=== PATIENT | female | born 1990 | race Caucasian/White ===

== ENCOUNTER 2017-06-28 12:07 | Inpatient (IN) | payer MEDICAID ==
[2017-06-28] MEDS ORDERED: Sodium Chloride 0.9% 10 ML Syringe FLUSH PRN (13:10)
--- NOTE | 2017-06-28 13:18 | PCM.LDHP ---
L&D History of Present Illness - General Date of Service: 06/28/17 Admit Problem/Dx: Patient Status Order with Admit Dx/Problem 06/28/17 12:16 Admission Status [Patient Status] [ADT] Routine Admission Diagnosis/Problem Admission Diagnosis/Problem -related examination - History of Present Illness Introduction:: Labor began 1000 today. Normal to date. EDC: 06/30/18, 39+wks. Timing/Duration: Reports: minutes: Location, : Reports: Abdomen Severity: Moderate - Related Data Allergies/Adverse Reactions: Allergies Allergy/AdvReac Type Severity Reaction Status Date / Time No Known Allergies Allergy Verified 06/21/17 18:01 Home Medications: Home Meds [id number]/Iron Fumarate/FA/DSS [ 19 Tablet] 1 tab PO DAILY 06/21/17 [ History] Past Medical History - Past Health History Medical/Surgical History: Denies Medical/Surgical History ( with NVD of twins 2016.) Psychiatric History: Reports: Anxiety, Depression Other Psychiatric History: cutting and/or burning self - Infectious Disease History Infectious Disease History: Reports: Chicken Pox - Past Surgical History HEENT Surgical History: Reports: Oral Surgery Social & Family History - Family History OBGYN: Reports: None Musculoskeletal: Reports: None Neurological: Reports: None Psychiatric: Reports: None Endocrine/Metabolic: Reports: None Hematologic: Reports: None Dermatologic: Reports: None Oncologic: Reports: None - Tobacco Use Smoking Status *Q: Current Every Day Smoker Years of Tobacco use: 11 Packs/Tins Daily: 0.5 Used Tobacco, but Quit: No Second Hand Smoke Exposure: Yes - Caffeine Use Caffeine Use: Reports: None - Recreational Drug Use Recreational Drug Use: No H&P Review of Systems - Review of Systems: Review Of Systems: See Below General: Reports: No Symptoms HEENT: Reports: No Symptoms Pulmonary: Denies: Shortness of Breath Cardiovascular: Denies: Chest Pain Gastrointestinal: Denies: Abdominal Pain Genitourinary: Denies: Hematuria Musculoskeletal: Denies: Joint Pain Skin: Denies: Rash Psychiatric: Denies: Agitation Neurological: Reports: No Symptoms Hematologic/Lymphatic: Reports: No Symptoms Immunologic: Reports: No Symptoms L&D Exam - Exam Exam: See Below (Normal) - OB Specific Contraction Intensity: Mild to Moderate Movement: Active Heart Tones: Present Heart Tones per Min: 128 Heart Rate (FHR) Variability: Moderate (6-25 bmp) Presentation: Vertex - He Score He Score Cervix Position: Midposition He Score Consistency: Soft He Score Effacement: 51-70% He Score Dilation: > 5 cm He Score Infant's Station: -1 ,0 He Score Total: 10 - Exam General: Alert, Oriented HEENT: Pupils Equal Neck: Supple Lungs: Clear to Auscultation Cardiovascular: Regular Rate, Regular Rhythm GI/Abdominal Exam: Soft, Non-Tender Genitourinary: Normal external exam Extremities: Normal Inspection. No: Pedal Edema Skin: Warm, Dry Neurological: Normal Speech Psychiatric: Alert, Normal Affect, Normal Mood - Problem List (1) Normal in multigravida SNOMED Code(s): 11979078 ICD Code: Z34.80 - ENCOUNTER FOR SUPRVSN OF NORMAL , UNSP TRIMESTER Status: Acute Current Visit: Yes Problem List Initiated/Reviewed/Updated: Yes Orders Last 24hrs: Active Orders 24 hr Category Date Time Status Admission Status [Patient Status] [ADT] Routine ADT 06/28/17 12:16 Active Communication Order [RC] ASDIRECTED Care 06/28/17 13:10 Ordered Heart Tones [RC] PER UNIT ROUTINE Care 06/28/17 13:10 Ordered Notify Provider Vital Signs [RC] PRN Care 06/28/17 13:10 Ordered Notify Provider [RC] PRN Care 06/28/17 13:10 Ordered Vital Signs [RC] PER UNIT ROUTINE Care 06/28/17 13:10 Ordered CBC WITH AUTO DIFF [HEME] Routine Lab 06/28/17 13:10 Ordered Sodium Chloride 0.9% [Saline Flush] Med 06/28/17 13:10 Ordered 10 ml FLUSH ASDIRECTED PRN Saline Lock Insert [OM.PC] Routine Oth 06/28/17 13:10 Ordered Resuscitation Status Routine Resus Stat 06/28/17 13:10 Ordered Assessment/Plan Comment:: Active labor. Normal exam. Epidural anesthetic PRN.
[2017-06-28] MEDS: Lactated Ringers 1,000 ML IV SCH ×2 (13:40→16:19)
[2017-06-28] MEDS ORDERED: ePHEDrine 50 MG/ML SDV ONE (13:58)
[2017-06-28] MEDS ORDERED: fentaNYL 300 MCG in Ropivacaine 200 ML IV ONE (14:41)
[2017-06-28] MEDS ORDERED: fentaNYL 100 MCG/2 ML SDV ONE ×3 (14:41)
[2017-06-28] MEDS ORDERED: Bupivacaine 0.25% 30 ML SDV EPIDUR ONE ×2 (14:41→18:14)
[2017-06-28] MEDS ORDERED: Nalbuphine 10 MG/1 ML Vial IVPUSH PRN (14:46)
[2017-06-28] MEDS ORDERED: Naloxone 0.4 MG in Sodium Chloride 0.9% 100 ML IV PRN ×2 (14:46→15:20)
[2017-06-28] MEDS ORDERED: Promethazine 25 MG/ML SDV IV PRN ×3 (14:46→15:20)
[2017-06-28] MEDS ORDERED: Naloxone 0.4 MG/ML SDV IVPUSH PRN ×3 (14:46→15:20)
[2017-06-28] MEDS ORDERED: hydrOXYzine HCl 50 MG/ML SDV IM PRN ×3 (14:46→15:31)
[2017-06-28] MEDS ORDERED: diphenhydrAMINE 50 MG/ML SDV IVPUSH PRN ×2 (14:50→15:21)
[2017-06-28] MEDS ORDERED: Ondansetron 4 MG/2 ML SDV IVPUSH PRN ×2 (14:51→15:23)
--- NOTE | 2017-06-28 14:53 | PCM.PRNOTE ---
- Free Text/Narrative Note: Called for labor analgesia for induction of labor. Patient rates pain score 7 of 10 on a 10 scale prior to initiation of labor analgesia. Discussed analgesia options, benefits to include risks of CSE. Questions answered and agrees to proceed. Sitting up at edge of bed, prepped, draped and L3-4 localized with 1% Lidocaine. A 17 gauge toughy was advanced with SAVANNAH technique until SAVANNAH was appreciated at 6cm. A 25 gauge spinal needle was advanced via epidural needle (CSE) with free flow CSF, negative heme and negative paresthesia. 20 mcg intrathecal fentanyl was administered at 1410 (Lot number [id number] exp 04/2018). The needle was removed with stylette in place. The epidural catheter was passed through the needle and left at 9 cm. A test dose of 1.5% lidocaine with 1.200K epi was given without any change in patient condition. 80 mcg of fentanyl was also administered epidurally. The catheter was secured in place. An infusion of 0.2 % ropivicaine with 600 mcg fentanyl (3 mcg/ml of fentanyl) was hung and infusing at 8 ml/hr. The PCEA was set at bolus of 5 ml every 12 minutes. The patient's hemodynamics were stable throughout and baby looks good on the monitor. Discussed with patient progression of labor and not always will have 100% pain relief during delivery. We discussed optimizing this by sitting with HOB when starts to feel pelvic pressure and to use bolus button to use gravity to cover low perineum. Verbalizes understanding. Time at bedside was 40 minutes.
[2017-06-28] MEDS ORDERED: ePHEDrine 50 MG/ML SDV IVPUSH PRN (15:20)
[2017-06-28] MEDS ORDERED: Oxytocin/Normal Saline 10 UNIT/1,000 ML BAG IV SCH (16:15)
--- NOTE | 2017-06-28 18:05 | PCM.SN ---
- Free Text/Narrative Note: Called in for pump alarming "air in line". Tubing primed again and connected. Also complains of pain at this time. A pump administered bolus of 10 ml twice. Still uncomfortable. Administered 10 mcg fentanyl and 10 ml 0.25% bupivicaine. Still a bit uncomfortable but ready to push now. While sitting up ready to push another 5 ml of 0.25% bupi given.
--- NOTE | 2017-06-28 18:10 | PCM.PNLD ---
Labor Progress Note - VS & Meds Vital Signs: Last Vital Signs Temp 97.8 F 06/28/17 12:15 Pulse 77 06/28/17 16:04 Resp 16 06/28/17 12:15 BP 105/60 06/28/17 16:04 Pulse Ox 99 06/28/17 12:15 Active Medications: Current Medications Diphenhydramine HCl (Benadryl) 25 mg IVPUSH Q3H PRN PRN Reason: PRURITUS Ephedrine Sulfate (Ephedrine Sulfate) 5 mg IVPUSH ASDIRECTED PRN PRN Reason: HYPOTENSION Hydroxyzine HCl (Vistaril) 25 - 50 mg IM Q6H PRN PRN Reason: PRURITIS Hydroxyzine HCl (Vistaril) 25 - 50 mg IM Q4H PRN PRN Reason: NAUSEA AND VOMITING Naloxone HCl 0.4 mg/ Sodium (Chloride) 101 mls @ 25 mls/hr IV ASDIRECTED PRN PRN Reason: PER ORDER OF ANESTHESIA Oxytocin/Sodium Chloride (Pitocin In Ns 10 Units/1,000 Ml) 10 unit in 1,000 mls @ 12 mls/hr IV TITRATE CALI; 2 MUNITS/MIN PRN Reason: Protocol Last Titration: 06/28/17 17:50 Dose: 1 munits/min, 6 mls/hr Lactated Ringer's (Ringers, Lactated) 1,000 mls @ 125 mls/hr IV ASDIRECTED CALI Last Admin: 06/28/17 16:19 Dose: 125 mls/hr Naloxone HCl (Narcan) 0.1 mg IVPUSH ASDIRECTED PRN PRN Reason: RESPIRATORY STATUS Ondansetron HCl (Zofran) 4 mg IVPUSH Q6H PRN PRN Reason: NAUSEA AND VOMITING Promethazine HCl (Phenergan) 6.25 - 12.5 mg IV Q4H PRN PRN Reason: NAUSEA AND VOMITING Sodium Chloride (Saline Flush) 10 ml FLUSH ASDIRECTED PRN PRN Reason: Keep Vein Open Discontinued Medications Ephedrine Sulfate (Ephedrine Sulfate) Confirm Administered Dose 50 mg .ROUTE .STK-MED ONE Stop: 06/28/17 13:59 - Uterine Contractions Uterine Monitoring Mode: External [place] Contraction Frequency (min): 6 Contraction Duration (sec): 50-70 Contraction Intensity: Mild Uterine Resting Tone: Soft - Monitoring Monitor Mode: External Ultrasound Heart Rate (FHR) Variability: Moderate (6-25 bmp) Decelerations: None - Vaginal Exam Dilation (cm): 8-9 Effacement (Percent): 90 Station: 0 Cervical Position: Midposition - Labor Progress (Free Text) Labor Progress: Pt doing well. Epidural anesthetic wearing off, getting re-bolused. FHTs good. Amniotomy + Lightly stained amniotic fluid. Cont. augmentation. Anticipate NVD.
--- NOTE | 2017-06-28 18:53 | PCM.DEL ---
L & D Note - General Info Date of Service: 06/28/17 - Delivery Note Labor: Augmented by ARM, Augmented by Oxytocin Delivery Outcome: Livebirth Infant Delivery Method: Spontaneous Vaginal Delivery-Single Delivery Mode: Spontaneous Presentation: Right Occiput Anterior (RAMSEY) Nuchal Cord: None Prep: Povidone-Iodine (Betadine Anesthesia Type: Epidural Amniotic Fluid Description: Meconium Stained Episiotomy Type: None Laceration: Periurethral Placenta: Spontaneous Cord: 3 Vessels Estimated Blood Loss: 150 Resuscitation Needed: No [place]: Suctioned, Bulb Syringe, Cathether, Stimulated Score 1 min: 9 Score 5 min: 9 Delivery Comments (Free Text/Narrative):: Steady progress in labor with IV pitocin augmentation. Pt. reached complete dilation. NVD after pushing with 3 contractions. MICHAEL position, nares and mouth suctioned after delivery of head. Baby suctioned, placed on Mom's abdomen, then to [place] warmer. Spontaneous [place] placenta with 3 vessel cord. Good uterine contraction, pitocin IV opened to 500ml/hr. BW 7#10oz. Baby's name Jesus Varghese. - Patient Data Vitals - Most Recent: Last Vital Signs Temp 97.8 F 06/28/17 12:15 Pulse 77 06/28/17 16:04 Resp 16 06/28/17 12:15 BP 105/60 06/28/17 16:04 Pulse Ox 99 06/28/17 12:15 Weight - Most Recent: 190 lb Lab Results Last 24 Hours: Laboratory Results - last 24 hr 06/28/17 Range/Units 13:25 WBC 15.2 H (4.5-12.0) X10-3/uL RBC 4.63 (3.23-5.20) x10(6)uL Hgb 12.6 (11.5-15.5) g/dL Hct 37.7 (30.0-51.3) % MCV 81.5 (80-96) fL MCH 27.2 L (27.7-33.6) pg MCHC 33.3 (32.2-35.4) g/dL RDW 14.1 (11.5-15.5) % Plt Count 250 (125-369) X10(3)uL MPV 8.2 (7.4-10.4) fL Neut % (Auto) 75.1 (46-82) % Lymph % (Auto) 15.5 (13-37) % [place] % (Auto) 8.3 (4-12) % Eos % (Auto) 1 (1.0-5.0) % Baso % (Auto) 0 (0-2) % Neut # (Auto) 11.3 H (1.6-8.3) # Lymph # (Auto) 2.4 (0.6-5.0) # [place] # (Auto) 1.3 (0.0-1.3) # Eos # (Auto) 0.1 (0.0-0.8) # Baso # (Auto) 0.1 (0.0-0.2) # Med Orders - Current: Current Medications Diphenhydramine HCl (Benadryl) 25 mg IVPUSH Q3H PRN PRN Reason: PRURITUS Ephedrine Sulfate (Ephedrine Sulfate) 5 mg IVPUSH ASDIRECTED PRN PRN Reason: HYPOTENSION Hydroxyzine HCl (Vistaril) 25 - 50 mg IM Q6H PRN PRN Reason: PRURITIS Hydroxyzine HCl (Vistaril) 25 - 50 mg IM Q4H PRN PRN Reason: NAUSEA AND VOMITING Naloxone HCl 0.4 mg/ Sodium (Chloride) 101 mls @ 25 mls/hr IV ASDIRECTED PRN PRN Reason: PER ORDER OF ANESTHESIA Oxytocin/Sodium Chloride (Pitocin In Ns 10 Units/1,000 Ml) 10 unit in 1,000 mls @ 12 mls/hr IV TITRATE CLAI; 2 MUNITS/MIN PRN Reason: Protocol Last Titration: 06/28/17 17:50 Dose: 1 munits/min, 6 mls/hr Lactated Ringer's (Ringers, Lactated) 1,000 mls @ 125 mls/hr IV ASDIRECTED CALI Last Admin: 06/28/17 16:19 Dose: 125 mls/hr Naloxone HCl (Narcan) 0.1 mg IVPUSH ASDIRECTED PRN PRN Reason: RESPIRATORY STATUS Ondansetron HCl (Zofran) 4 mg IVPUSH Q6H PRN PRN Reason: NAUSEA AND VOMITING Promethazine HCl (Phenergan) 6.25 - 12.5 mg IV Q4H PRN PRN Reason: NAUSEA AND VOMITING Sodium Chloride (Saline Flush) 10 ml FLUSH ASDIRECTED PRN PRN Reason: Keep Vein Open Discontinued Medications Bupivacaine HCl (Marcaine 0.25%) 30 ml EPIDUR ONETIME ONE Stop: 06/28/17 18:15 Ephedrine Sulfate (Ephedrine Sulfate) Confirm Administered Dose 50 mg .ROUTE .STK-MED ONE Stop: 06/28/17 13:59 - Problem List & Annotations (1) Normal in multigravida SNOMED Code(s): 80081794 Code(s): Z34.80 - ENCOUNTER FOR SUPRVSN OF NORMAL , UNSP TRIMESTER Status: Acute Current Visit: Yes - Problem List Review Problem List Initiated/Reviewed/Updated: Yes - My Orders Last 24 Hours: My Active Orders 06/28/17 12:16 Admission Status [Patient Status] [ADT] Routine 06/28/17 13:10 Communication Order [RC] ASDIRECTED Heart Tones [RC] PER UNIT ROUTINE Notify Provider Vital Signs [RC] PRN Notify Provider [RC] PRN Vital Signs [RC] PER UNIT ROUTINE Sodium Chloride 0.9% [Saline Flush] 10 ml FLUSH ASDIRECTED PRN Saline Lock Insert [OM.PC] Routine Resuscitation Status Routine 06/28/17 16:04 Communication Order [RC] ASDIRECTED Communication Order [RC] ASDIRECTED Communication Order [RC] ASDIRECTED Communication Order [RC] ASDIRECTED Notify Provider [RC] PRN Notify Provider [RC] STAT Vital Signs [RC] PER UNIT ROUTINE 06/28/17 16:15 Oxytocin/Normal Saline [Pitocin in NS 10 UNITS/1,000 ML] 10 unit in 1,000 ml IV TITRATE 06/28/17 17:15 Lactated Ringers [Ringers, Lactated] 1,000 ml IV ASDIRECTED - Assessment Assessment:: Delivered. - Plan Plan:: Active labor. Normal exam. Epidural anesthetic PRN.
--- NOTE | 2017-06-29 08:54 | PCM.DCSUM1 ---
Discharge Summary - Hospital Course Free Text/Narrative:: Healthy pt. with NVD at term. course normal. Discharge to home with baby. F/U appt. baby 2 wks, mom 6 wks. - Discharge Data Discharge Date: 06/29/17 Discharge Disposition: Home, Self-Care 01 Condition: Good - Discharge Diagnosis/Problem(s) (1) Normal in multigravida SNOMED Code(s): 25422582 ICD Code: Z34.80 - ENCOUNTER FOR SUPRVSN OF NORMAL , UNSP TRIMESTER Status: Acute Priority: High Current Visit: Yes - Patient Summary/Data Operative Procedure(s) Performed: NVD - Patient Instructions Diet: Usual Diet as Tolerated Activity: As Tolerated Driving: May Drive Today - Discharge Plan Home Medications: Home Meds [id number]/Iron Fumarate/FA/DSS [ 19 Tablet] 1 tab PO DAILY 06/21/17 [ History] Patient Handouts: and Inducing , Contraception Choices, Hormonal Contraception Information, Mastitis, [id number], Vaginal Delivery, and Mastitis, Depression and Baby Blues, Home Care Instructions for Mom, Vaginal Delivery, Care After, Breast Engorgement, Breast Pumping Tips, [id number], Challenges and Solutions, Care After Vaginal Delivery - Discharge Summary/Plan Comment DC Time >30 min.: No - General Info Date of Service: 06/29/17 Functional Status: Reports: Pain Controlled - Review of Systems General: Denies: Fever Cardiovascular: Denies: Chest Pain Gastrointestinal: Denies: Abdominal Pain Genitourinary: Reports: Other (mild perineal discomfort) Skin: Denies: Jaundice Neurological: Denies: No Symptoms Psychiatric: Denies: Depression - Patient Data Vitals - Most Recent: Last Vital Signs Temp 98.4 F 06/29/17 00:00 Pulse 86 06/29/17 00:00 Resp 18 06/29/17 00:00 BP 118/63 06/29/17 00:00 Pulse Ox 100 06/29/17 00:00 Weight - Most Recent: 190 lb I&O - Last 24 hours: Intake & Output 06/28/17 06/29/17 06/29/17 22:59 06:59 14:59 Intake Total 1215 Output Total 1000 Balance 215 Lab Results - Last 24 hrs: Laboratory Results - last 24 hr 06/28/17 06/29/17 Range/Units 13:25 06:18 WBC 15.2 H 15.1 H (4.5-12.0) X10-3/uL RBC 4.63 3.95 (3.23-5.20) x10(6)uL Hgb 12.6 10.6 L (11.5-15.5) g/dL Hct 37.7 32.2 (30.0-51.3) % MCV 81.5 81.5 (80-96) fL MCH 27.2 L 26.9 L (27.7-33.6) pg MCHC 33.3 33.1 (32.2-35.4) g/dL RDW 14.1 14.6 (11.5-15.5) % Plt Count 250 211 (125-369) X10(3)uL MPV 8.2 8.2 (7.4-10.4) fL Neut % (Auto) 75.1 68.5 (46-82) % Lymph % (Auto) 15.5 20.9 (13-37) % [place] % (Auto) 8.3 9.1 (4-12) % Eos % (Auto) 1 1 (1.0-5.0) % Baso % (Auto) 0 0 (0-2) % Neut # (Auto) 11.3 H 10.3 H (1.6-8.3) # Lymph # (Auto) 2.4 3.2 (0.6-5.0) # [place] # (Auto) 1.3 1.4 H (0.0-1.3) # Eos # (Auto) 0.1 0.2 (0.0-0.8) # Baso # (Auto) 0.1 0.0 (0.0-0.2) # Med Orders - Current: Current Medications Sodium Chloride (Saline Flush) 10 ml FLUSH ASDIRECTED PRN PRN Reason: Keep Vein Open Last Admin: 06/28/17 21:00 Dose: 10 ml Discontinued Medications Bupivacaine HCl (Marcaine 0.25%) 30 ml EPIDUR ONETIME ONE Stop: 06/28/17 18:15 Diphenhydramine HCl (Benadryl) 25 mg IVPUSH Q3H PRN PRN Reason: PRURITUS Ephedrine Sulfate (Ephedrine Sulfate) Confirm Administered Dose 50 mg .ROUTE .STK-MED ONE Stop: 06/28/17 13:59 Last Admin: 06/29/17 00:17 Dose: Not Given Ephedrine Sulfate (Ephedrine Sulfate) 5 mg IVPUSH ASDIRECTED PRN PRN Reason: HYPOTENSION Hydroxyzine HCl (Vistaril) 25 - 50 mg IM Q6H PRN PRN Reason: PRURITIS Hydroxyzine HCl (Vistaril) 25 - 50 mg IM Q4H PRN PRN Reason: NAUSEA AND VOMITING Naloxone HCl 0.4 mg/ Sodium (Chloride) 101 mls @ 25 mls/hr IV ASDIRECTED PRN PRN Reason: PER ORDER OF ANESTHESIA Oxytocin/Sodium Chloride (Pitocin In Ns 10 Units/1,000 Ml) 10 unit in 1,000 mls @ 12 mls/hr IV TITRATE CALI; 2 MUNITS/MIN PRN Reason: Protocol Last Titration: 06/28/17 17:50 Dose: 1 munits/min, 6 mls/hr Lactated Ringer's (Ringers, Lactated) 1,000 mls @ 125 mls/hr IV ASDIRECTED CALI Last Admin: 06/28/17 16:19 Dose: 125 mls/hr Naloxone HCl (Narcan) 0.1 mg IVPUSH ASDIRECTED PRN PRN Reason: RESPIRATORY STATUS Ondansetron HCl (Zofran) 4 mg IVPUSH Q6H PRN PRN Reason: NAUSEA AND VOMITING Promethazine HCl (Phenergan) 6.25 - 12.5 mg IV Q4H PRN PRN Reason: NAUSEA AND VOMITING - Exam General: Reports: Alert, Oriented HEENT: Reports: Pupils Reactive Neck: Reports: Supple Lungs: Reports: Clear to Auscultation Cardiovascular: Reports: Regular Rate GI/Abdominal Exam: Soft Extremities: Normal Inspection Skin: Reports: Warm, Dry *Q Meaningful Use (DIS) - VTE *Q VTE Criteria *Q: - Stroke *Q Stroke Criteria *Q: - AMI *Q AMI Criteria *Q:
[2017-06-29] MEDS ORDERED: Acetaminophen 325 MG Tab PO PRN (10:25)
[2017-06-29 16:27] VITALS: BP 116/68
== END 2017-06-29 20:15 | disposition home or self-care (01) | DRG 775 ==
LOC: FB.OBCHECK 12:07 → FB.OB 12:09 → FB.OBCHECK 18:02 → FB.OB 18:02
PROVIDERS: ADMIT Family Medicine; ATTEND Family Medicine
PROC: 10E0XZZ Delivery of Products of Conception, External Approach (ICD-10-PCS; principal; 2017-06-28)
PROC: 00HU33Z Insertion of Infusion Device into Spinal Canal, Percutaneous Approach (ICD-10-PCS; 2017-06-28)
DX: O99.334 Smoking (tobacco) complicating childbirth (principal); F17.210 Nicotine dependence, cigarettes, uncomplicated; Z3A.39 39 weeks gestation of pregnancy; Z37.0 Single live birth
CPT/HCPCS: 36415; 51701; 59409; 59414; 85025; 99211; A9270-GY; J2590; J2795; J3010; J3490; J7050; J7120

== ENCOUNTER 2019-03-01 16:23 | Emergency (ER) | payer MEDICAID ==
--- NOTE | 2019-03-01 16:45 | EDM.PDOC ---
ED HPI GENERAL MEDICAL PROBLEM - General Stated Complaint: CHEST PAIN Time Seen by Provider: 03/01/19 16:25 Source of Information: Reports: Patient History Limitations: Reports: No Limitations - History of Present Illness INITIAL COMMENTS - FREE TEXT/NARRATIVE: 28-year-old female with onset of central and left-sided chest pain that is a squeezing and cramping and sharp type pain that began yesterday about mid day while at rest after smoking a cigarette. She states that it seems to wax and wane in intensity but has never gone away completely since it began. She reports she has had this pain in the past when she was a teenager and oftentimes it seemed to follow drinking alcohol or smoking cigarettes she feels. The pain is worse with palpation and with deep breaths. She rates pain as a 2/10 now but it is an 8-9/10 at its worst. She has had no arm pain or jaw pain. She has had some intermittent right-sided neck pain that does not seem to be associated with this pain. No trauma. No nausea or vomiting. No cough or nasal congestion. No fevers or chills. No leg pain or swelling. No hemoptysis. She does feel somewhat short of breath when the pain is at its worse because she feels "she can't take a good deep breath". There are no other associated signs or symptoms. There are no other modifying factors. Onset: Other (Yesterday about mid day) Duration: Waxing/Waning Location: Reports: Chest Quality: Reports: Sharp (And squeezing and cramping) Severity: Moderate (Nares) Improves with: Reports: None Worsens with: Reports: Breathing, Other (Palpation) Context: Reports: Other (As above) Associated Symptoms: Reports: Chest Pain, Shortness of Breath Treatments TEST TUBE MAKER: Reports: Other (see below) (Nothing) Midsternal chest Pain Score (Numeric/FACES): 4 - Related Data Allergies Allergy/AdvReac Type Severity Reaction Status Date / Time No Known Allergies Allergy Verified 06/21/17 18:01 Home Meds: Home Meds Orphenadrine [Norflex] 100 mg PO BID PRN #10 tab 03/01/19 [Rx] Sertraline [Zoloft] 100 mg PO DAILY 03/01/19 [History] Past Medical History Psychiatric History: Reports: Anxiety, Depression Other Psychiatric History: cutting and/or burning self - Infectious Disease History Infectious Disease History: Reports: Chicken Pox - Past Surgical History HEENT Surgical History: Reports: Oral Surgery Female Surgical History: Reports: Tubal Ligation Social & Family History - Family History Cardiac: Denies: Blood Clots/VTE/DVT, Hypertension, [facility] O[facility]: Reports: None Musculoskeletal: Reports: None Neurological: Reports: None Psychiatric: Reports: None Endocrine/Metabolic: Reports: None Hematologic: Reports: None Dermatologic: Reports: None Oncologic: Reports: None - Tobacco Use Smoking Status *Q: Current Every Day Smoker - Caffeine Use Caffeine Use: Reports: None - Alcohol Use Alcohol Use History: Yes Alcohol Use Frequency: Weekly - Recreational Drug Use Recreational Drug Use: No Recreational Drug Use Comment: She denies any illicit drug use. 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.) ED ROS GENERAL - Review of Systems Review Of Systems: See Below Constitutional: Reports: No Symptoms HEENT: Reports: No Symptoms Respiratory: Reports: No Symptoms (Other than as above) Cardiovascular: Reports: Chest Pain (Central and left-sided) GI/Abdominal: Reports: No Symptoms : Reports: No Symptoms Musculoskeletal: Reports: Neck Pain (Intermittent right anterolateral neck pain) Skin: Reports: Bruising (On both lower extremities) Neurological: Reports: No Symptoms Hematologic/Lymphatic: Reports: Easy Bruising (Per patient, "for a long time".) Immunologic: Reports: No Symptoms ED EXAM, GENERAL - Physical Exam Exam: See Below Exam Limited By: No Limitations General Appearance: Alert, WD/WN, No Apparent Distress Eye Exam: Bilateral Eye: EOMI, Normal Inspection, PERRL Ears: Normal External Exam Ear Exam: Bilateral Ear: Auricle Normal Nose: Normal Inspection, Normal Mucosa, No Blood Throat/Mouth: Normal Inspection, Normal Oropharynx, Normal Voice, No Airway Compromise Head: Atraumatic, Normocephalic Neck: Normal Inspection, Supple, Non-Tender, Full Range of Motion Respiratory/Chest: No Respiratory Distress, Lungs Clear, Normal Breath Sounds, No Accessory Muscle Use, Other (Tender in her upper central and left chest areas with palpation.) Cardiovascular: Normal Peripheral Pulses, Regular Rate, Rhythm, No Murmur Peripheral Pulses: 2+: Radial (L), Radial (R), Dorsalis Pedis (L), Dorsalis Pedis (R) GI/Abdominal: Normal Bowel Sounds, Soft, Non-Tender, No Mass Back Exam: Normal Inspection Extremities: Normal Inspection, Normal Range of Motion, No Pedal Edema, Normal Capillary Refill Neurological: Alert, Oriented, CN II-XII Intact, Normal Cognition, No Motor/ Sensory Deficits Psychiatric: Normal Affect Skin Exam: Warm, Dry, Intact, Ecchymosis (Scattered over both lower extremities) Lymphatic: No Adenopathy (No lymphadenopathy noted.) EKG INTERPRETATION EKG Date: 03/01/19 Time: 16:26 Rhythm: NSR Dora: Normal P-Wave: Present QRS: Normal ST-T: Normal QT: Normal Comparison: NA - No Prior EKG (Normal EKG.) Course - Vital Signs Last Recorded V/S: Last Vital Signs Temp 36.4 C 03/01/19 16:23 Pulse 88 03/01/19 16:23 Resp 18 03/01/19 16:23 BP 109/65 03/01/19 16:23 Pulse Ox 97 03/01/19 16:23 - Orders/Labs/Meds Orders: Active Orders 24 hr Category Date Time Status EKG Documentation Completion [RC] ASDIRECTED Care 03/01/19 16:47 Active Chest 2V [CR] Stat Exams 03/01/19 16:46 Taken Sodium Chloride 0.9% [Saline Flush] Med 03/01/19 16:46 Active 10 ml FLUSH ASDIRECTED PRN Peripheral IV Insertion Adult [OM.PC] Routine Oth 03/01/19 16:46 Ordered EKG 12 Lead [EK] Routine Ther 03/01/19 16:46 Ordered Medication Orders Sodium Chloride (Saline Flush) 10 ml FLUSH ASDIRECTED PRN PRN Reason: Keep Vein Open Last Admin: 03/01/19 16:50 Dose: 10 ml Labs: Laboratory Tests 03/01/19 03/01/19 03/01/19 Range/Units 16:30 16:30 16:30 WBC 10.8 (4.5-12.0) X10-3/uL RBC 5.11 (3.23-5.20) x10(6)uL Hgb 14.5 (11.5-15.5) g/dL Hct 43.5 D (30.0-51.3) % MCV 85.2 (80-96) fL MCH 28.4 (27.7-33.6) pg MCHC 33.4 (32.2-35.4) g/dL RDW 13.0 (11.5-15.5) % Plt Count 291 (125-369) X10(3)uL MPV 9.3 (7.4-10.4) fL Neut % (Auto) 62.6 (46-82) % Lymph % (Auto) 26.5 (13-37) % Spalding % (Auto) 8.4 (4-12) % Eos % (Auto) 2 (1.0-5.0) % Baso % (Auto) 1 (0-2) % Neut # (Auto) 6.7 (1.6-8.3) # Lymph # (Auto) 2.9 (0.6-5.0) # Spalding # (Auto) 0.9 (0.0-1.3) # Eos # (Auto) 0.2 (0.0-0.8) # Baso # (Auto) 0.1 (0.0-0.2) # PT 9.3 (8.7-11.1) INR 0.96 (0.89-1.13) D-Dimer, Quantitative 0.59 (0.0-0.59) mg/LFEU Sodium 141 (135-145) mmol/L Potassium 3.7 (3.5-5.3) mmol/L Chloride 107 (100-110) mmol/L Carbon Dioxide 22 (21-32) mmol/L BUN 12 (7-18) mg/dL Creatinine 0.7 (0.55-1.02) mg/dL Est Cr Clr Drug Dosing 103.32 mL/min Estimated GFR (MDRD) > 60 (>60) BUN/Creatinine Ratio 17.1 (9-20) Glucose 116 (80-116) mg/dL Calcium 8.6 (8.6-10.2) mg/dL Total Bilirubin 0.2 (0.1-1.3) mg/dL AST 14 (5-25) IU/L ALT 21 (12-36) U/L Alkaline Phosphatase 95 (56-112) IU/L Troponin I (<0.017-0.056) ng/mL Total Protein 7.0 (6.0-8.0) g/dL Albumin 3.5 (3.5-5.2) g/dL Globulin 3.5 g/dL Albumin/Globulin Ratio 1.0 /18/19 Range/Units 16:30 WBC (4.5-12.0) X10-3/uL RBC (3.23-5.20) x10(6)uL Hgb (11.5-15.5) g/dL Hct (30.0-51.3) % MCV (80-96) fL MCH (27.7-33.6) pg MCHC (32.2-35.4) g/dL RDW (11.5-15.5) % Plt Count (125-369) X10(3)uL MPV (7.4-10.4) fL Neut % (Auto) (46-82) % Lymph % (Auto) (13-37) % Spalding % (Auto) (4-12) % Eos % (Auto) (1.0-5.0) % Baso % (Auto) (0-2) % Neut # (Auto) (1.6-8.3) # Lymph # (Auto) (0.6-5.0) # Spalding # (Auto) (0.0-1.3) # Eos # (Auto) (0.0-0.8) # Baso # (Auto) (0.0-0.2) # PT (8.7-11.1) INR (0.89-1.13) D-Dimer, Quantitative (0.0-0.59) mg/LFEU Sodium (135-145) mmol/L Potassium (3.5-5.3) mmol/L Chloride (100-110) mmol/L Carbon Dioxide (21-32) mmol/L BUN (7-18) mg/dL Creatinine (0.55-1.02) mg/dL Est Cr Clr Drug Dosing mL/min Estimated GFR (MDRD) (>60) BUN/Creatinine Ratio (9-20) Glucose (80-116) mg/dL Calcium (8.6-10.2) mg/dL Total Bilirubin (0.1-1.3) mg/dL AST (5-25) IU/L ALT (12-36) U/L Alkaline Phosphatase (56-112) IU/L Troponin I < 0.017 L (<0.017-0.056) ng/mL Total Protein (6.0-8.0) g/dL Albumin (3.5-5.2) g/dL Globulin g/dL Albumin/Globulin Ratio Meds: Medications Generic Name Dose Route Start Last Admin Trade Name George PRN Reason Stop Dose Admin Sodium Chloride 10 ml 03/01/19 16:46 03/01/19 16:50 Saline Flush FLUSH 10 ml ASDIRECTED PRN Administration Keep Vein Open Discontinued Medications Generic Name Dose Route Start Last Admin Trade Name George PRN Reason Stop Dose Admin Sodium Chloride 10 ml 03/01/19 17:08 Saline Flush FLUSH ASDIRECTED PRN Keep Vein Open - Radiology Interpretation Free Text/Narrative:: Chest x-ray PA and lateral shows no acute disease. - Re-Assessments/Exams Free Text/Narrative Re-Assessment/Exam: 03/01/19 17:45: The patient's blood pressure, O2 saturation and pulse have remained stable while she has been in the emergency department. Her EKG was normal. Her chest x-ray was normal. Her blood tests were all reassuringly normal including a negative troponin (the patient has had pain ongoing for greater than 12 hours and therefore VA is rule out) and a negative d-dimer which effectively rules out blood clots/pulmonary embolus. Her pain is reproducible in the left chest and central chest area. It appears to be musculoskeletal in nature I discussed this with the patient. I will prescribe a low-dose Flexeril as needed to use for the muscle spasm that she has been experiencing. She may also take Tylenol and ibuprofen as needed. She should follow-up with her primary doctor. Departure - Departure Time of Disposition: 17:50 Disposition: Home, Self-Care 01 Condition: Good Clinical Impression: Non-cardiac chest pain, Muscle spasm - Discharge Information Prescriptions: Orphenadrine [Norflex] 100 mg PO BID PRN #10 tab PRN Reason: Muscle spasm or muscle pain Instructions: Muscle Cramps and Spasms, [id number], Nonspecific Chest Pain, [id number], Chest Wall Pain, [id number] Additional Instructions: Your blood tests were all reassuringly normal--this effectively rules out heart attack and blood clots as we discussed.. Your EKG was normal. Your chest x-ray was normal. Your pain appears to be coming from your muscles and supporting tissue of your chest wall. You may take Tylenol and ibuprofen as needed for pain. Medication as prescribed for more severe pain/muscle spasm (Norflex 100 mg ). Follow-up with your primary doctor. Back to the emergency department for coughing of blood, pass out spells, racing heart rate, vomiting or any other concerning sign or symptom. - My Orders Last 24 Hours: My Active Orders 03/01/19 16:46 Chest 2V [CR] Stat Sodium Chloride 0.9% [Saline Flush] 10 ml FLUSH ASDIRECTED PRN Peripheral IV Insertion Adult [OM.PC] Routine EKG 12 Lead [EK] Routine 03/01/19 16:47 EKG Documentation Completion [RC] ASDIRECTED - Assessment/Plan Last 24 Hours: My Active Orders 03/01/19 16:46 Chest 2V [CR] Stat Sodium Chloride 0.9% [Saline Flush] 10 ml FLUSH ASDIRECTED PRN Peripheral IV Insertion Adult [OM.PC] Routine EKG 12 Lead [EK] Routine 03/01/19 16:47 EKG Documentation Completion [RC] ASDIRECTED
[2019-03-01] MEDS ORDERED: Sodium Chloride 0.9% 10 ML Syringe FLUSH PRN ×2 (16:46→17:08)
[2019-03-01 19:03] VITALS: BP 112/57; PULSE 73
--- NOTE | 2019-03-02 12:23 | CR ---
INDICATION: Left-sided chest pain. CHEST: PA and lateral views of the chest were obtained 03/01/19 - no comparisons. The heart is normal in size and shape. Mediastinum and bony thorax are unremarkable. Overlying EKG leads are noted. An active infiltrate or effusion was not identified. IMPRESSION: No acute process. No definite active disease. MTDD
== END 2019-03-01 18:33 | disposition home or self-care (01) ==
LOC: FB.ED 16:23
DX: M62.838 Other muscle spasm (principal); R07.89 Other chest pain; F41.9 Anxiety disorder, unspecified; F32.9 Major depressive disorder, single episode, unspecified; F17.210 Nicotine dependence, cigarettes, uncomplicated; Z79.899 Other long term (current) drug therapy
CPT/HCPCS: 36415; 71046; 80053; 84484; 85025; 85379; 85610; 93005; 99285-25

== ENCOUNTER 2022-06-23 15:39 | Emergency (ER) | payer MEDICAID ==
[2022-06-23] MEDS ORDERED: Ibuprofen 800 MG Tab PO ONE (16:18)
[2022-06-23] MEDS ORDERED: Acetaminophen 500 MG Tab PO ONE (16:18)
[2022-06-23] MEDS ORDERED: Lidocaine 2% Viscous Solution 15 ML UD PO ONE (16:18)
[2022-06-23 17:19] VITALS: BP 122/68; PULSE 124
== END 2022-06-23 16:48 | disposition home or self-care (01) ==
LOC: FB.ED 15:39
DX: K04.7 Periapical abscess without sinus (principal)
CPT/HCPCS: 99282; A9270

== ENCOUNTER 2022-09-20 13:09 | Emergency (ER) | payer MEDICAID ==
[2022-09-20] MEDS ORDERED: Sodium Chloride 0.9% 10 ML Syringe FLUSH PRN (13:58)
[2022-09-20] MEDS ORDERED: Sodium Chloride 0.9% 1,000 ML IV ONE (13:58)
[2022-09-20 14:20] LABS: ESTIMATED GFR 88 mL/min (>60)
[2022-09-20 14:26] LABS: CORONAVIRUS COVID-19 NAA NEGATIVE (NEGATIVE)
[2022-09-20] MEDS ORDERED: Iopamidol 755 Mg/ML 100 ML Bottle IV ONE (15:26)
[2022-09-20 17:09] VITALS: BP 122/86; PULSE 98
== END 2022-09-20 17:00 | disposition home or self-care (01) ==
LOC: FB.ED 13:09
DX: E86.0 Dehydration (principal); B34.9 Viral infection, unspecified; R06.02 Shortness of breath; R11.2 Nausea with vomiting, unspecified; R19.7 Diarrhea, unspecified; Z20.822 Contact with and (suspected) exposure to COVID-19
CPT/HCPCS: 0240U; 36415; 71275; 74177; 80053; 81001; 81025; 83735; 84484; 85025; 85379; 86140; 87230; 93005; 93010; 96360; 99283; 99285-25; J7030; Q9967